=== PATIENT | female | born 1995 | race Hispanic/Latino ===

== ENCOUNTER 2021-07-19 23:41 | Emergency (ER) | payer BC ==
[~2021-07-19] VITALS: Ht 170.2 cm; Wt 133.8 kg
[2021-07-19 23:56] VITALS: BP 118/63
[2021-07-20] MEDS ORDERED: BENZ-39 PO (02:12)
[2021-07-20] MEDS ORDERED: DICL50TA9 PO (02:12)
== END 2021-07-20 02:32 | disposition home or self-care (01) ==
LOC: EDH 23:41
DX: J20.9 Acute bronchitis, unspecified (principal); Z20.822 Contact with and (suspected) exposure to COVID-19; J45.909 Unspecified asthma, uncomplicated; E03.9 Hypothyroidism, unspecified
CPT/HCPCS: 71045; 81025; 87635; 87804 ×2; 99283; C9803